=== PATIENT | female | born 1965 | race Caucasian/White ===

== ENCOUNTER 2016-06-15 09:06 | Emergency (ER) | payer BC ==
[2016-10-29] MEDS ORDERED: LEVOTHYROXINE125 MCG PO (10:22)
[2016-10-29] MEDS ORDERED: HYDROCHLOROTHIA25 MG PO (10:22)
[2016-10-29] MEDS ORDERED: PRILOSEC OTC20 MG PO (10:22)
[2016-10-29] MEDS ORDERED: CITALOPRAM HBR40 MG PO (10:23)
[2016-10-29] MEDS ORDERED: ZYRTEC10 M3 PO (10:23)
[2016-10-29] MEDS ORDERED: VITAMIN D35000 UNI1 PO (10:24)
[2016-10-29] MEDS ORDERED: NIACIN ER500 MG PO (10:24)
[2016-10-29] MEDS ORDERED: BENADRYL 25MG C25 MG PO (10:24)
[2016-10-29] MEDS ORDERED: BARIATRIC VITAMINS PO (10:25)
[2016-10-29] MEDS ORDERED: FIBER350 GM PO (10:25)
[2016-10-29] MEDS ORDERED: ZOFRAN4 MG PO (15:13)
[2016-10-29] MEDS ORDERED: PERCOCET 7.5-31 EACH PO (15:16)
[2016-10-29] MEDS ORDERED: COL-RITE250 MG PO (15:16)
== END 2016-06-15 13:42 | disposition home or self-care (01) ==
LOC: ER1 09:06
DX: M19.011 Primary osteoarthritis, right shoulder (principal); I10 Essential (primary) hypertension; E07.9 Disorder of thyroid, unspecified; Z86.718 Personal history of other venous thrombosis and embolism; Z79.899 Other long term (current) drug therapy
CPT/HCPCS: 73030; 93005; 93971; 99284

== ENCOUNTER → 2016-06-24 | Outpatient (CLI) | payer BC ==
[~2016-06-24] MED LIST: BARIATRIC VITAMINS PO; BENADRYL 25MG C25 MG PO; CITALOPRAM HBR40 MG PO; COL-RITE250 MG PO; FIBER350 GM PO; HYDROCHLOROTHIA25 MG PO; LEVOTHYROXINE125 MCG PO; NIACIN ER500 MG PO; PERCOCET 7.5-31 EACH PO; PRILOSEC OTC20 MG PO; VITAMIN D35000 UNI1 PO; ZOFRAN4 MG PO; ZYRTEC10 M3 PO
== END ==
LOC: KOH-I 09:12
DX: Z13.820 Encounter for screening for osteoporosis (principal)
CPT/HCPCS: 77080

== ENCOUNTER 2016-11-09 17:21 | Emergency (ER) | payer BC ==
[2016-11-09 19:54] LABS: HEMOGLOBIN 13.5 gm/dl (12.3-15.3); RED BLOOD COUNT 4.6 M/UL (4.00-5.10); WHITE BLOOD COUNT 7.6 K/UL (4.5-11.0)
[2016-11-09 19:55] LABS: BUN/CREATININE RATIO 22 (0-10)
== END 2016-11-09 23:35 | disposition home or self-care (01) ==
LOC: ER1 17:21
PROVIDERS: Family Medicine
DX: K85.90 Acute pancreatitis without necrosis or infection, unspecified (principal); K75.9 Inflammatory liver disease, unspecified; M54.9 Dorsalgia, unspecified; Z98.84 Bariatric surgery status
CPT/HCPCS: 36415; 80053; 81001; 82150; 83690; 85025; 87086; 96374; 96375; 99284; J1885; J2405

== ENCOUNTER → 2016-11-11 | Outpatient (CLI) | payer BC ==
[2016-11-11 10:37] LABS: HEMOGLOBIN 12.6 gm/dl (12.3-15.3); RED BLOOD COUNT 4.39 M/UL (4.00-5.10)
[2016-11-11 10:38] LABS: WHITE BLOOD COUNT 5.3 K/UL (4.5-11.0)
[2016-11-11 11:14] LABS: BUN/CREATININE RATIO 25 (0-10)
== END ==
LOC: LAB 09:22
PROVIDERS: Family Medicine
DX: K85.90 Acute pancreatitis without necrosis or infection, unspecified (principal)
CPT/HCPCS: 36415; 80053; 82150; 83690; 85027

== ENCOUNTER → 2020-05-20 | Outpatient (CLI) | payer BC ==
[~2020-05-20] MED LIST changes: +ASPIRIN325 MG PO; +BARIATRIC MVI PO; +BENADRYL25 MG PO; +CELEXA40 MG PO; +COZAAR100 MG PO; +COZAAR50 MG PO; +CRESTOR20 MG PO; +DICLOFENAC GEL 1% TOP; +DOCUSATE SODIU250 MG PO; +ELIQUIS 5 MG TAB5 MG PO; +ELIQUIS5 MG PO; +EUTHYROX125 MCG PO; +IBUPROFEN800 MG PO; +KEFLEX CAP 500500 MG PO; +NORCO 7.5-3251 EACH PO; +OMNICEF 300 MG300 MG PO; +ONDANSETRON HCL8 MG PO; +PYRIDIUM100 MG PO; +SYNTHROID125 MCG PO; +TYLENOL ARTHRITIS PO; +VITAMIN C 500500 MG PO; +VITAMIN D350 MC3 PO; +ZANAFLEX2 MG PO; +[UNRECOGNIZED DRUG - OTHER] PO; +[UNRECOGNIZED DRUG - OTHER] PO
== END ==
LOC: ECHO 14:30
DX: R94.31 Abnormal electrocardiogram [ECG] [EKG] (principal); I08.2 Rheumatic disorders of both aortic and tricuspid valves; I27.20 Pulmonary hypertension, unspecified
CPT/HCPCS: ECHO; 93306

== ENCOUNTER → 2020-06-04 | Outpatient (CLI) | payer BC | LOC: RAD 13:02 | DX: M79.675 Pain in left toe(s) (principal); R93.6 Abnormal findings on diagnostic imaging of limbs | CPT/HCPCS: 73630 ==

== ENCOUNTER → 2020-06-06 | Outpatient (CLI) | payer BC ==
[2020-06-06 10:16] LABS: HEMOGLOBIN 12.7 gm/dl (12.3-15.3); RED BLOOD COUNT 4.33 M/UL (4.00-5.10); WHITE BLOOD COUNT 5.6 K/UL (4.5-11.0)
[2020-06-06 10:54] LABS: BUN/CREATININE RATIO 23 (0-10)
== END ==
LOC: OPSV2 09:00
PROVIDERS: Podiatrist Foot & Ankle Surgery
DX: Z01.812 Encounter for preprocedural laboratory examination (principal); M72.2 Plantar fascial fibromatosis; M25.871 Other specified joint disorders, right ankle and foot
CPT/HCPCS: 36415; 80048; 82652; 85027

== ENCOUNTER → 2020-06-12 | Day surgery (SDC) | payer BC ==
[~2020-06-12] VITALS: Ht 165.1 cm; Wt 104.3 kg
== END | disposition home or self-care (01) ==
LOC: OR 05:54
DX: G57.51 Tarsal tunnel syndrome, right lower limb (principal); M72.2 Plantar fascial fibromatosis; G47.33 Obstructive sleep apnea (adult) (pediatric); M79.89 Other specified soft tissue disorders; I35.1 Nonrheumatic aortic (valve) insufficiency; I10 Essential (primary) hypertension; M85.80 Other specified disorders of bone density and structure, unspecified site; E78.2 Mixed hyperlipidemia; E03.9 Hypothyroidism, unspecified; K21.9 Gastro-esophageal reflux disease without esophagitis; Z86.718 Personal history of other venous thrombosis and embolism
CPT/HCPCS: 73630; 73650; 76000; J0690; J1885; J2001; J2250; J2405; J2704; J2795; J3010; J3370; J7120; Q4133

== ENCOUNTER 2020-06-25 15:27 | Emergency (ER) | payer BC ==
[~2020-06-25 15:27] MED LIST changes: -ELIQUIS 5 MG TAB5 MG PO; -ELIQUIS5 MG PO
[2020-06-25 16:48] LABS: HEMOGLOBIN 11.8 gm/dl (12.3-15.3); RED BLOOD COUNT 4.15 M/UL (4.00-5.10); WHITE BLOOD COUNT 6.5 K/UL (4.5-11.0)
[2020-06-25] MEDS ORDERED: ELIQUIS5 MG PO (17:16)
[2020-06-25] MEDS ORDERED: ELIQUIS 5 MG TAB5 MG PO (17:16)
== END 2020-06-25 17:50 | disposition home or self-care (01) ==
LOC: ER1 15:27
PROVIDERS: Physician Assistant
DX: I82.4Z1 Acute embolism and thrombosis of unspecified deep veins of right distal lower extremity (principal); I82.441 Acute embolism and thrombosis of right tibial vein; E03.9 Hypothyroidism, unspecified; I10 Essential (primary) hypertension; E78.5 Hyperlipidemia, unspecified; Z86.718 Personal history of other venous thrombosis and embolism
CPT/HCPCS: 73610; 73630; 80053; 85025; 85610; 85730; 93971; 99284

== ENCOUNTER → 2020-06-25 | Outpatient (CLI) | payer BC | LOC: KOH-I 13:45 | DX: I82.441 Acute embolism and thrombosis of right tibial vein (principal) | CPT/HCPCS: 93971 ==

== ENCOUNTER → 2020-06-25 | Outpatient (CLI) | payer BC | LOC: KOH-I 09:48 | DX: M79.671 Pain in right foot (principal); M25.571 Pain in right ankle and joints of right foot | CPT/HCPCS: 73610; 73630 ==

== ENCOUNTER 2020-06-27 13:45 | Emergency (ER) | payer BC ==
[~2020-06-27 13:45] MED LIST changes: +ELIQUIS 5 MG TAB5 MG PO; +ELIQUIS5 MG PO
[2020-06-27 15:20] LABS: HEMOGLOBIN 11.6 gm/dl (12.3-15.3); RED BLOOD COUNT 3.95 M/UL (4.00-5.10); WHITE BLOOD COUNT 8.5 K/UL (4.5-11.0)
[2020-06-27 15:54] LABS: BUN/CREATININE RATIO 22 (0-10)
== END 2020-06-27 16:56 | disposition home or self-care (01) ==
LOC: ER1 13:45
PROVIDERS: Family Medicine
DX: R07.9 Chest pain, unspecified (principal); M54.9 Dorsalgia, unspecified; Z79.899 Other long term (current) drug therapy
CPT/HCPCS: 80053; 82550; 82553; 83874; 84484; 85025; 85379; 93005; 99285; Q9967

== ENCOUNTER → 2020-07-18 | Outpatient (CLI) | payer BC | LOC: KOH-I 10:22 | DX: M79.671 Pain in right foot (principal) | CPT/HCPCS: 73630 ==

== ENCOUNTER → 2020-07-31 | Outpatient (CLI) | payer BC | LOC: KOH-I 13:37 | DX: M77.31 Calcaneal spur, right foot (principal); M25.471 Effusion, right ankle | CPT/HCPCS: 73721 ==

== ENCOUNTER → 2020-08-20 | Outpatient (CLI) | payer BC | LOC: KOH-I 10:24 | DX: M84.374A Stress fracture, right foot, initial encounter for fracture (principal) | CPT/HCPCS: 73630 ==

== ENCOUNTER → 2020-09-30 | Outpatient (CLI) | payer BC | LOC: EXRD 11:14 | DX: I82.421 Acute embolism and thrombosis of right iliac vein (principal); Z86.718 Personal history of other venous thrombosis and embolism | CPT/HCPCS: 93971 ==

== ENCOUNTER → 2020-10-17 | Outpatient (CLI) | payer BC | LOC: KOH-I 13:13 | DX: S92.901A Unspecified fracture of right foot, initial encounter for closed fracture (principal) | CPT/HCPCS: 73630 ==

== ENCOUNTER → 2021-04-07 | Outpatient (CLI) | payer BC | LOC: EXRD 14:48 | DX: M79.604 Pain in right leg (principal); M79.89 Other specified soft tissue disorders; S80.11XA Contusion of right lower leg, initial encounter; R68.84 Jaw pain; M19.09 Primary osteoarthritis, other specified site | CPT/HCPCS: 70150; 70160; 73552; 93971 ==

== ENCOUNTER 2021-07-24 20:39 | Emergency (ER) | payer BC ==
[2021-07-24 21:23] LABS: HEMOGLOBIN 12.2 gm/dl (12.3-15.3); RED BLOOD COUNT 4.27 M/UL (4.00-5.10); WHITE BLOOD COUNT 4.9 K/UL (4.5-11.0)
[2021-07-24 21:38] LABS: BUN/CREATININE RATIO 27 (0-10)
[2021-07-24] MEDS ORDERED: CEPHALEXIN500 MG PO (22:23)
[2021-07-24] MEDS ORDERED: DIFLUCAN150 MG PO (22:23)
== END 2021-07-24 22:45 | disposition home or self-care (01) ==
LOC: ER1 20:39
PROVIDERS: Physician Assistant
DX: K59.00 Constipation, unspecified (principal); N30.90 Cystitis, unspecified without hematuria; E78.5 Hyperlipidemia, unspecified
CPT/HCPCS: 74018; 80053; 81001; 83690; 85025; 87077; 87086; 87186; 96361; 96374; 96375; 99284; J0696; J1885

== ENCOUNTER → 2021-08-15 | Outpatient (CLI) | payer BC ==
[~2021-08-15] MED LIST changes: +CEPHALEXIN500 MG PO; +DIFLUCAN150 MG PO
== END ==
LOC: RAD 17:11
DX: M25.511 Pain in right shoulder (principal); M19.011 Primary osteoarthritis, right shoulder
CPT/HCPCS: 73030